=== PATIENT | female | born 1990 | race American Indian/Alaskan Native ===

== ENCOUNTER 2024-12-08 18:48 | Emergency (ER) | payer MEDICAID | END 2024-12-08 19:40 | disposition home or self-care (01) | LOC: MW.ED 18:48 | DX: J06.9 Acute upper respiratory infection, unspecified (principal); J45.909 Unspecified asthma, uncomplicated; Z76.0 Encounter for issue of repeat prescription; Z86.16 Personal history of COVID-19; Z75.3 Unavailability and inaccessibility of health-care facilities; Z91.048 Other nonmedicinal substance allergy status | CPT/HCPCS: 71045; 87428; 99285; A9270; 99283 ==